=== PATIENT | male | born 1975 | race Asian ===

== ENCOUNTER 2022-07-17 13:54 | Emergency (ER) | payer OTHER ==
[~2022-07-17] VITALS: Ht 172.7 cm; Wt 86.2 kg
[2022-07-17 13:55] VITALS: BP_SYST 152
--- NOTE | 2022-07-17 13:55 | NUR ---
Placed in room 07 . Placed on monitoring manager, blood pressure machine and pulse oximeter. To gown for exam. Side rails up. Report given to CISCO ADORNO.
--- NOTE | 2022-07-17 13:57 | NUR ---
ER DR. CHAVARRIA EXAMINING PT ON SHIRA
--- NOTE | 2022-07-17 13:58 | NUR ---
CODE STROKE CALLED
--- NOTE | 2022-07-17 14:02 | NUR ---
Patient transported to radiology via GURNEY, accompanied by STAFF.
--- NOTE | 2022-07-17 14:28 | NUR ---
pt was esequiel pt was getting a follow up at the dr office, pt primary Dr saw concerning symptoms. pt experienced a panic attack last night. pt stated he has sob last night approx 2330. pt state he has a constriction of breathing. numbness on left jaw muscle according to pt. pt states his left ear sounds are muffled and left side of head was hurting a lot. pt took a cold compress and relaxed. According to pt the symptoms have improved slightly since last night.
[2022-07-17 14:33] LABS: BASOPHILS % (AUTO) 0.8 % (0.0-2.0); EOSINOPHILS % (AUTO) 0.6 % (0.0-4.0); HEMATOCRIT 42.8 % (36-54); HEMOGLOBIN 14.8 g/dL (14.0-18.0); LYMPHOCYTES # (AUTO) 1.1 K/uL (1.0-5.5); LYMPHOCYTES % (AUTO) 19.9 % (20.5-51.5); MEAN CORPUSCULAR HEMOGLOBIN 31 pg (27-31); MEAN CORPUSCULAR HGB CONC 35 % (32-36); MEAN CORPUSCULAR VOLUME 90 fL (79.0-98.0); MONOCYTES # (AUTO) 0.3 K/uL (0.0-1.0); MONOCYTES % (AUTO) 5.6 % (1.7-9.3); NEUTROPHILS % (AUTO) 73.1 % (40.0-70.0); PLATELET COUNT (AUTO) 179 K/uL (130-430); RED BLOOD CELL COUNT(AUTO) 4.76 MIL/uL (4.2-6.2); RED CELL DISTRIBUTION WIDTH 13.1 % (9.0-15.0); WHITE BLOOD COUNT (AUTO) 5.5 K/uL (4.8-10.8)
[2022-07-17 14:50] LABS: PROTHROMBIN TIME 10.7 SECS (9.5-12.5)
[2022-07-17 14:52] LABS: ANION GAP 5 (5-15); CALCIUM 9.2 mg/dL (8.4-11.0); CHLORIDE 105 mmol/L (98-107); CREATININE 0.93 mg/dL (0.55-1.30); GFR AFRICAN AMERICAN 112 mL/min (>90); GLUCOSE 170 mg/dL (70-99); UREA NITROGEN, BLOOD 21 mg/dL (8-21)
[2022-07-17 14:57] LABS: ALANINE AMINOTRANSFERASE 40 U/L (12-78); ALBUMIN 3.9 g/dL (3.4-4.8); ASPARTATE AMINOTRANSFERASE 21 U/L (10-37); TOTAL BILIRUBIN 0.8 mg/dL (0.0-1.0)
--- NOTE | 2022-07-17 15:20 | NUR ---
Levy of care received, Pt A&Ox4, slow speech noted, pt moving all the extremities, no facial drop noted, skin pink and warm, cap refill <3, VSS, will cont to monitor.
--- NOTE | 2022-07-17 15:44 | NUR ---
Pt A&Ox4, VSS, respirations even and unlabored.
[2022-07-17] MEDS ORDERED: cloNIDine HCL 0.1 MG TABLET PO ONE (16:00)
--- NOTE | 2022-07-17 16:25 | NUR ---
ED MD Yang in room with pt discussing pt care.
--- NOTE | 2022-07-17 16:33 | NUR ---
Dr Angulo explaining results to patient at this time.
--- NOTE | 2022-07-17 16:35 | NUR ---
GARCÍA WOODALL , REQUESTED FAX OF [facility] FAX: [phone]
--- NOTE | 2022-07-17 16:48 | NUR ---
Covid and MRSA swab sent to the lab
[2022-07-17 16:53] LABS: BILIRUBIN,URINE NEGATIVE (NEGATIVE); BLOOD, URINE NEGATIVE (NEGATIVE); CLARITY/URINE CLEAR (CLEAR); COLOR,URINE YELLOW (YELLOW); GLUCOSE,URINE 1+ (NEGATIVE); KETONES,URINE TRACE (NEGATIVE); LEUKOCYTE ESTERASE ,URINE NEGATIVE (NEGATIVE); NITRITE, URINE NEGATIVE (NEGATIVE); PH,URINE 5.5 (5.0-8.0); PROTEIN URINE NEGATIVE (NEGATIVE); UROBILINOGEN,URINE 0.2 (0.2-1.0)
--- NOTE | 2022-07-17 16:54 | NUR ---
TRANSFER INFO [facility] DR. ARITA [phone] SPOKE TO [facility] STATED SHE WILL CALL BACK WITH ETA WITH [facility]. 2 STROKE TRANSPORT. Addendum: 07/17/22 at 1659 by [facility] ETA [id number]
[2022-07-17 17:05] LABS: BARBITURATE, URINE NEGATIVE (NEG <=200); BENZODIAZEPINE, URINE NEGATIVE (NEG <=150); CANNABINOID, URINE NEGATIVE (NEG <=50); COCAINE, URINE NEGATIVE (NEG <=150); METHAMPHETAMINES SCREEN,URINE NEGATIVE (NEG <=500); OPIATE, URINE NEGATIVE (NEG <=100); PHENCYCLIDINE SCREEN,URINE NEGATIVE (NEG <=25); UR TRICYCLIC ANTIDEPRESSANTS NEGATIVE (NEG <=300); URINE AMPHETAMINE NEGATIVE (NEG <=500); URINE METHADONE NEGATIVE (NEG <=200); URINE OXYCODONE SCREEN NEGATIVE (NEG <=100); URINE PROPOXYPHENE SCREEN NEGATIVE (NEG <=300)
--- NOTE | 2022-07-17 17:35 | NUR ---
SPOKE TO [facility] TOOL HARDENERMILENA HERE IS 1HOUR AND 15 MIN. WILL NOTIFY PT AND CONTINUE TO MONITOR.
[2022-07-17] MEDS ORDERED: LISI-209 PO (18:23)
[2022-07-17] MEDS ORDERED: CLOP75TA32 PO (18:23)
[2022-07-17] MEDS ORDERED: ASPI-1393 PO (18:23)
[2022-07-17] MEDS ORDERED: GLIP2.5T3 PO (18:23)
[2022-07-17] MEDS ORDERED: METF-379 PO (18:23)
[2022-07-17] MEDS ORDERED: LIP40 PO (18:23)
[2022-07-17 18:36] VITALS: BP_SYST 143
--- NOTE | 2022-07-17 18:42 | NUR ---
VIEW POINT HERE TO PT UNIT 226 WITH CISCO MAK.
--- NOTE | 2022-07-17 19:08 | NUR ---
REPORT GIVEN TO EZE PECK AT [facility].
--- NOTE | 2022-07-17 19:10 | NUR ---
Patient to be transferred to [facility]. Is being transferred due to higher level of care. Receiving facility has accepting physician and available space. ER physician has signed transfer form. Patient or responsible democrat has agreed to transfer and signed form. Patient belongings inventoried and will be sent with patient. Copy of nursing notes, lab reports, EKG, Physicians Orders and X-rays to be sent with patient. Report called to EZE PECK at receiving facility. Receiving physician is DR ARITA. [facility] service has been called for transfer. ETA is 15 MIN TO [facility].
== END 2022-07-17 19:10 | disposition short-term general hospital (02) ==
LOC: SED 13:54
DX: G45.9 Transient cerebral ischemic attack, unspecified (principal); I66.9 Occlusion and stenosis of unspecified cerebral artery; R51.9 Headache, unspecified; R42 Dizziness and giddiness; R20.2 Paresthesia of skin; E11.9 Type 2 diabetes mellitus without complications; I10 Essential (primary) hypertension; Z79.899 Other long term (current) drug therapy
CPT/HCPCS: 36415; 70450-TC; 71045; 76376; 80053; 80307; 81003; 82962; 84484; 85025; 85610-TC; 85730-TC; 86886; 86900; 86901; 99285